=== PATIENT | female | born 1995 | race Caucasian/White ===

== ENCOUNTER 2023-04-29 09:39 | Inpatient (IN) | payer OTHER, SELFPAY ==
[2023-04-29 09:55] VITALS: BP 135/84; BMI 33.6
[2023-04-29 10:49] LABS: % Basophils 0.3 % (0-2); % Eosinophils 1.1 % (0-6); % Immature Granulocytes 1.3 % (0-0.5); % Lymphocytes 30.1 % (20.5-51.1); % Monocytes 9.2 % (1.7-9.3); Absolute Eosinophils 0.1 10^3/uL (0-0.7); Absolute Immature Granulocytes 0.1 10^3/uL (0-0.05); Absolute Lymphocytes 2.7 10^3/uL (1.2-3.4); Absolute Monocytes 0.8 10^3/uL (0.1-0.6); Absolute Neutrophils 5.2 10^3/uL (1.4-6.5); Hematocrit 35.3 % (37.0-47.0); Hemoglobin 12.4 g/dL (12.0-16.0); Mean Corp Hgb Conc. 35.1 g/dL (33.0-37.0); Mean Corpuscular Hgb 31.4 pg (27.0-31.0); Mean Corpuscular Volume 89.4 fL (81.0-99.0); Mean Platelet Volume 9.3 fL (7.4-10.4); Nucleated Red Blood Cells % 0 %; Platelet Count 224 10^3/uL (130-400); Red Blood Cell Count 3.95 10^6/uL (4.20-5.40); Red Cell Dist. Width 12.6 % (11.5-14.5)
[2023-04-29 10:50] LABS: Urine Albumin Negative (Neg - Trace); Urine Bilirubin Negative (Negative); Urine Character Clear (Clear); Urine Color Yellow; Urine Glucose 1+ (Negative); Urine Ketone Negative (Negative); Urine Leukocyte Negative (Negative); Urine Nitrite Negative (Negative); Urine Occult Blood Negative (Negative); Urine Specific Gravity 1.015 (<1.030); Urine Urobilinogen Negative (Neg - 1+)
[2023-04-29 11:09] LABS: ALT (SGPT) 18 U/L (0-35); AST (SGOT) 25 U/L (14-36); Albumin 3.4 g/dl (3.5-5.0); Alkaline Phosphatase 163 U/L (38-126); Blood Urea Nitrogen 8 mg/dl (7-17); Calcium 9.6 mg/dl (8.4-10.2); Carbon Dioxide 23 mmol/L (22-30); Chloride 107 mmol/L (98-107); Estimated Creatinine Clearance > 125 ml/min; Glucose 91 mg/dl (70-99); Potassium 4.1 mmol/L (3.5-5.1); Sodium 135 mmol/L (135-145); Total Bilirubin 0.3 mg/dl (0.2-1.3); eGFR > 60.00
[2023-04-29 12:21] LABS: Urine Protein 11 mg/dl
[2023-04-29 12:41] LABS: Protein/creatinine Ratio 0.2
[2023-04-29] MEDS: CYTOTEC 50 MICROGRAM VAG (17:50)
[2023-04-29] MEDS: CYTOTEC PO (21:48)
[2023-04-29] MEDS: CYTOTEC 25 MICROGRAM PO (22:01)
[2023-04-30] MEDS: CYTOTEC PO ×7 (00:16→17:32)
[2023-04-30] MEDS: MORPHINE SULFATE 2 MG IV ×4 (01:04→08:39)
[2023-04-30] MEDS: PHENERGAN 50.5 MG IV ×2 (01:05→05:02)
[2023-04-30] MEDS: CYTOTEC 25 MICROGRAM PO ×2 (02:27→06:05)
[2023-04-30] MEDS: PITOCIN 30 UNITS/NSS 500 ML IV (10:22)
[2023-04-30] MEDS: PENICILLIN 110 UNITS IV (12:02)
[2023-04-30] MEDS: FENTANYL/BUPIVACAINE 100 EPIDURAL ×2 (12:03→20:14)
[2023-04-30] MEDS: SUBLIMAZE 100 MCG EPIDURAL (12:03)
[2023-04-30] MEDS: PENICILLIN 55 UNITS IV ×2 (15:57→19:57)
[2023-05-01] MEDS: PENICILLIN 55 UNITS IV (00:32)
[2023-05-01] MEDS: CYTOTEC PO (07:22)
[2023-05-01] MEDS: MOTRIN 600 MG PO ×3 (08:00→20:33)
[2023-05-02 04:47] LABS: Hematocrit 27.9 % (37.0-47.0); Hemoglobin 9.3 g/dL (12.0-16.0)
[2023-05-02] MEDS: TYLENOL 650 MG PO (08:51)
[2023-05-02] MEDS: SENOKOT-S 1 TABLET PO (08:51)
[2023-05-03 17:14] LABS: Syphilis/T. pallidum Ab Reflex Negative (Negative)
== END 2023-05-02 15:05 | disposition home or self-care (01) | DRG 806 ==
LOC: LDRP 09:39
PROVIDERS: Obstetrics & Gynecology; ADMITTING PHYSICIAN Obstetrics & Gynecology
PROC: 3E0P7VZ Introduction of Hormone into Female Reproductive, Via Natural or Artificial Opening (ICD-10-PCS; 2023-04-29)
PROC: 3E033VJ Introduction of Other Hormone into Peripheral Vein, Percutaneous Approach (ICD-10-PCS; 2023-04-30)
PROC: 10907ZC Drainage of Amniotic Fluid, Therapeutic from Products of Conception, Via Natural or Artificial Opening (ICD-10-PCS; 2023-04-30)
PROC: 0HQ9XZZ Repair Perineum Skin, External Approach (ICD-10-PCS; 2023-05-01)
PROC: 10E0XZZ Delivery of Products of Conception, External Approach (ICD-10-PCS; 2023-05-01)
DX: O48.0 Post-term pregnancy (principal); O41.03X0 Oligohydramnios, third trimester, not applicable or unspecified; Z37.0 Single live birth; Z3A.40 40 weeks gestation of pregnancy; O70.0 First degree perineal laceration during delivery; O99.824 Streptococcus B carrier state complicating childbirth; R01.0 Benign and innocent cardiac murmurs; O36.8130 Decreased fetal movements, third trimester, not applicable or unspecified
CPT/HCPCS: 88307; 59025; 76815; 80053; 81003; 82570; 84156; 85014; 85018; 85025; 86780; 86850; 86900; 86901; 99406

== ENCOUNTER → 2024-04-23 14:15 | Outpatient (REF) | payer OTHER, SELFPAY | LOC: HWRAD 14:15 | PROVIDERS: ATTENDING PHYSICIAN Nurse Practitioner Family; FAMILY PHYSICIAN Family Medicine | DX: Z34.90 Encounter for supervision of normal pregnancy, unspecified, unspecified trimester (principal) | CPT/HCPCS: 76801 ==

== ENCOUNTER → 2024-05-18 16:42 | Outpatient (REF) | payer OTHER, SELFPAY | LOC: PNTC 16:42 | PROVIDERS: ATTENDING PHYSICIAN Obstetrics & Gynecology | DX: Z36.0 Encounter for antenatal screening for chromosomal anomalies (principal); Z36.82 Encounter for antenatal screening for nuchal translucency | CPT/HCPCS: 36415 ==

== ENCOUNTER → 2024-07-14 15:43 | Outpatient (REF) | payer OTHER, SELFPAY | LOC: PNTC 15:43 | PROVIDERS: ATTENDING PHYSICIAN Obstetrics & Gynecology | DX: Z34.82 Encounter for supervision of other normal pregnancy, second trimester (principal) | CPT/HCPCS: 76805; 76817 ==

== ENCOUNTER → 2024-10-06 16:25 | Outpatient (REF) | payer OTHER, SELFPAY | LOC: PNTC 16:25 | PROVIDERS: ATTENDING PHYSICIAN Student in an Organized Health Care Education/Training Program | DX: Z87.59 Personal history of other complications of pregnancy, childbirth and the puerperium (principal) | CPT/HCPCS: 76816 ==

== ENCOUNTER → 2024-11-06 13:11 | Outpatient (REF) | payer OTHER, SELFPAY | LOC: RAD 13:11 | PROVIDERS: ATTENDING PHYSICIAN Obstetrics & Gynecology; FAMILY PHYSICIAN Family Medicine | DX: Z34.93 Encounter for supervision of normal pregnancy, unspecified, third trimester (principal) | CPT/HCPCS: 76815 ==

== ENCOUNTER → 2024-11-26 14:11 | Outpatient (REF) | payer OTHER, SELFPAY | LOC: PNTC 14:11 | PROVIDERS: ATTENDING PHYSICIAN Obstetrics & Gynecology | DX: O36.8190 Decreased fetal movements, unspecified trimester, not applicable or unspecified (principal) | CPT/HCPCS: 59025 ==

== ENCOUNTER 2024-11-29 10:02 | Observation (INO) | payer OTHER, SELFPAY ==
[2024-11-29 10:21] VITALS: BP 115/73
== END 2024-11-29 11:02 | disposition home or self-care (01) ==
LOC: LDRP 10:02
PROVIDERS: ADMITTING PHYSICIAN Obstetrics & Gynecology
DX: Z03.79 Encounter for other suspected maternal and fetal conditions ruled out (principal)
CPT/HCPCS: 36415; 59025; 86850; 86900; 86901; G0378

== ENCOUNTER 2024-12-01 06:12 | Inpatient (IN) | payer OTHER, SELFPAY ==
[2024-12-01 06:36] VITALS: BP 130/69; BMI 32.5
[2024-12-01] MEDS: LR 1000 IV ×2 (07:18→11:16)
[2024-12-01] MEDS: PENICILLIN 110 UNITS IV (07:19)
[2024-12-01 07:37] LABS: Hematocrit 39.0 % (37.0-47.0); Hemoglobin 13.2 g/dL (12.0-16.0); Mean Corp Hgb Conc. 33.8 g/dL (33.0-37.0); Mean Corpuscular Volume 88.8 fL (81.0-99.0); Nucleated Red Blood Cells % 0 %; Platelet Count 210 10^3/uL (130-400); Red Cell Dist. Width 13.2 % (11.5-14.5)
[2024-12-01] MEDS: PENICILLIN 55 UNITS IV ×4 (11:17→23:32)
[2024-12-01] MEDS: PITOCIN 30 UNITS/NSS 500 ML IV (15:28)
[2024-12-01] MEDS: STADOL 1 MG IV (18:22)
[2024-12-01] MEDS: SUBLIMAZE 100 MCG EPIDURAL (19:49)
[2024-12-01] MEDS: FENTANYL/BUPIVACAINE 100 EPIDURAL (19:49)
[2024-12-02 01:50] LABS: Cord ABG Comment CORD BLOOD
[2024-12-02 01:53] LABS: B.E. Cord ABG -2.6 mMOL/L; HCO3 Cord ABG 24.2 mmol/L; O2 Saturation % Cord ABG 59.4 %; PCO2 Cord ABG 48 mmHg; PO2 Cord ABG 25 mmHg; pH Cord ABG 7.31
[2024-12-02 01:56] LABS: B.E. Cord ABG -4.5 mMOL/L; HCO3 Cord ABG 25.2 mmol/L; O2 Saturation % Cord ABG 23.1 %; PCO2 Cord ABG 66 mmHg; PO2 Cord ABG 13 mmHg; pH Cord ABG 7.19
[2024-12-02] MEDS: METHERGINE INJECTION 0.2 MG IM (02:24)
[2024-12-02] MEDS: FEOSOL PO (14:01)
[2024-12-02] MEDS: COLACE PO (14:01)
[2024-12-02] MEDS: PRENATAL PLUS PO (14:06)
[2024-12-02] MEDS: MOTRIN 600 MG PO ×2 (14:26→20:35)
[2024-12-02] MEDS: COLACE 100 MG PO (20:35)
[2024-12-03 06:40] LABS: Hematocrit 34.8 % (37.0-47.0); Hemoglobin 11.3 g/dL (12.0-16.0)
[2024-12-03] MEDS: PRENATAL PLUS 1 TABLET PO (08:37)
[2024-12-03] MEDS: COLACE 100 MG PO (08:37)
[2024-12-03] MEDS: FEOSOL 325 MG PO (08:37)
[2024-12-03] MEDS: MOTRIN 600 MG PO (08:39)
[2024-12-04 15:47] LABS: Syphilis/T. pallidum Ab Reflex Negative (Negative)
== END 2024-12-03 13:38 | disposition home or self-care (01) | DRG 807 ==
LOC: LDRP 06:12
PROVIDERS: Obstetrics & Gynecology; ADMITTING PHYSICIAN Obstetrics & Gynecology
PROC: 3E033VJ Introduction of Other Hormone into Peripheral Vein, Percutaneous Approach (ICD-10-PCS; 2024-12-01)
PROC: 4A0HXCZ Measurement of Products of Conception, Cardiac Rate, External Approach (ICD-10-PCS; 2024-12-01)
PROC: 10907ZC Drainage of Amniotic Fluid, Therapeutic from Products of Conception, Via Natural or Artificial Opening (ICD-10-PCS; 2024-12-01)
PROC: 10E0XZZ Delivery of Products of Conception, External Approach (ICD-10-PCS; 2024-12-02)
DX: O48.0 Post-term pregnancy (principal); Z37.0 Single live birth; O99.824 Streptococcus B carrier state complicating childbirth; Z3A.40 40 weeks gestation of pregnancy; O69.81X0 Labor and delivery complicated by cord around neck, without compression, not applicable or unspecified; O66.0 Obstructed labor due to shoulder dystocia
CPT/HCPCS: 82803; 85014; 85018; 85025; 86780; 86850; 86900; 86901; 88307

== ENCOUNTER 2024-12-12 23:59 | Observation (INO) | payer OTHER, SELFPAY ==
[2024-12-13 00:06] VITALS: BMI 28.4
[2024-12-13 00:15] VITALS: BP 114/72
[2024-12-13 00:47] LABS: Urine Character Clear (Clear)
[2024-12-13] MEDS: TYLENOL 1000 MG PO (00:49)
[2024-12-13 01:01] LABS: ALT (SGPT) 22 U/L (0-35); AST (SGOT) 21 U/L (14-36); Albumin 4.3 g/dl (3.5-5.0); Alkaline Phosphatase 128 U/L (38-126); Blood Urea Nitrogen 20 mg/dl (7-17); Calcium 9.9 mg/dl (8.4-10.2); Carbon Dioxide 25 mmol/L (22-30); Chloride 103 mmol/L (98-107); Estimated Creatinine Clearance 92 ml/min; Glucose 93 mg/dl (70-99); Potassium 3.8 mmol/L (3.5-5.1); Sodium 135 mmol/L (135-145); Total Protein 7.3 g/dl (6.3-8.2); eGFR > 60.00
[2024-12-13 01:20] LABS: Hematocrit 43.1 % (37.0-47.0); Hemoglobin 14.4 g/dL (12.0-16.0); Mean Corp Hgb Conc. 33.4 g/dL (33.0-37.0); Mean Corpuscular Volume 90.7 fL (81.0-99.0); Platelet Count 359 10^3/uL (130-400); Red Cell Dist. Width 12.6 % (11.5-14.5)
[2024-12-13 01:29] LABS: Urine Squamous Cell 16-20 /LPF (Few); Urine Urothelial Cell >30 /LPF (FEW)
[2024-12-13 01:31] LABS: Urine Red Blood Cell 0-2 /HPF (0-2); Urine White Cell 50-60 /HPF (0-5)
== END 2024-12-13 01:45 | disposition home or self-care (01) ==
LOC: LDRP 23:59
PROVIDERS: ADMITTING PHYSICIAN Obstetrics & Gynecology
DX: O90.89 Other complications of the puerperium, not elsewhere classified (principal); R51.9 Headache, unspecified; R42 Dizziness and giddiness
CPT/HCPCS: 80053; 81003; 81015; 82570; 84156; 85027; G0378

== ENCOUNTER → 2024-12-18 09:30 | Outpatient (REF) | payer OTHER, SELFPAY | LOC: WDC 09:30 | PROVIDERS: ATTENDING PHYSICIAN Obstetrics & Gynecology | DX: N63.31 Unspecified lump in axillary tail of the right breast (principal) | CPT/HCPCS: 76642 ==